=== PATIENT | male | born 1995 | race Caucasian/White ===

== ENCOUNTER 2017-05-10 12:25 | Emergency (ER) | payer SELFPAY ==
[2017-05-10] MEDS ORDERED: LIDOCAINE 1% W/EPI MPF 10 ML SOL ONE (12:41)
[2017-05-10] MEDS ORDERED: LIDOCAINE 1% W/EPI MPF 10 ML SOL SC ONE (12:57)
[2017-05-10] MEDS ORDERED: TDAP VACCINE 0.5 ML SUS IM ONE ×2 (12:57→12:59)
[2017-05-10 13:25] VITALS: BP 117/62; PULSE 90; RESP 16; O2SAT 100
== END 2017-05-10 13:18 | disposition home or self-care (01) | DRG 605 ==
LOC: ED 12:25
DX: S51.011A Laceration without foreign body of right elbow, initial encounter (principal); W25.XXXA Contact with sharp glass, initial encounter
CPT/HCPCS: 12002; 90471; 90715; 99285; G0168; A6402